=== PATIENT | female | born 1995 ===

== ENCOUNTER → 2016-10-19 | Outpatient (REF) | LOC: WSOH 14:17 | DX: Z02.1 Encounter for pre-employment examination (principal) ==

== ENCOUNTER → 2016-10-22 | Outpatient (REF) | LOC: WSOH 12:30 | DX: Z02.89 Encounter for other administrative examinations (principal) ==

== ENCOUNTER → 2018-09-15 | Outpatient (CLI) | payer BC ==
[2018-09-15 22:43] LABS: HEPATITIS B SURFACE ANTIBODY <2.0 (())
== END ==
LOC: ZCOL.LAB 13:53
PROVIDERS: Family Medicine
DX: Z01.84 Encounter for antibody response examination (principal); Z78.9 Other specified health status